=== PATIENT | female | born 1975 ===

== ENCOUNTER 2021-01-18 06:50 | Day surgery (SDC) | payer OTHER ==
[~2021-01-18 06:50] MED LIST: VITAMIN D PO
[2021-01-18] MEDS ORDERED: PERCOCET 5-3251 EACH PO (11:13)
== END 2021-01-18 13:20 | disposition home or self-care (01) ==
LOC: CIR.AMB 06:50
PROVIDERS: ATTEND Surgery
DX: C73 Malignant neoplasm of thyroid gland (principal); Z20.822 Contact with and (suspected) exposure to COVID-19